=== PATIENT | female | born 1990 | race Caucasian/White ===

== ENCOUNTER 2019-05-25 13:12 | Emergency (ER) | payer OTHER ==
[2019-05-25 13:25] VITALS: BP 112/74
--- NOTE | 2019-05-25 13:48 | UC ---
Ear Complaint HPI - HPI Summary HPI Summary: 29 year old female with no PMH present with L ear pain x 4 days. Pain worsening , radiating into neck with fullness on left side. no drainage, no sinus pressure/ pain. h/o seasonal allergies. No fever, chills. NO medications , no recent abx. h/o mutliple ear infections, tubes as child, none recently. - History of Current Complaint Chief Complaint: UCEar Stated Complaint: EAR PAIN Time Seen by Provider: 05/25/19 13:27 Hx Obtained From: Patient Hx Last Menstrual Period: iud ?: No Onset/Duration: Sudden Onset, Lasting Days - 4 Severity Initially: Moderate Severity Currently: Moderate Pain Intensity: 5 Pain Scale Used: 0-10 Numeric Alleviating Factors: OTC Meds - motrin Associated Signs/Symptoms: Negative: Foreign Body Sensation, Trauma to Ear Related History: Seasonal Allergies - Allergies/Home Medications Allergies/Adverse Reactions: Allergies Allergy/AdvReac Type Severity Reaction Status Date / Time No Known Allergies Allergy Verified 05/25/19 13:25 PMH/Surg Hx/FS Hx/Imm Hx Previously Healthy: Yes - Surgical History Surgical History: Yes Surgery Procedure, Year, and Place: ear tubes; adenoids; patch on hole in ear drum bi lat - Family History Known Family History: Positive: Non-Contributory - Social History Alcohol Use: None Substance Use Type: None Smoking Status (MU): Never Smoked Tobacco Have You Smoked in the Last Year: No - Immunization History Most Recent Influenza Vaccination: 09/09/13 Most Recent Tetanus Shot: 09/09/13 Most Recent Pneumonia Vaccination: n/a Review of Systems All Other Systems Reviewed And Are Negative: Yes Constitutional: Negative: Fever, Chills, Fatigue ENT: Positive: Ear Ache. Negative: Sore Throat, Nasal Discharge, Sinus Congestion, Sinus Pain/Tenderness Is Patient Immunocompromised?: No Physical Exam Triage Information Reviewed: Yes Appearance: Well-Appearing, No Pain Distress, Well-Nourished Vital Signs: Initial Vital Signs Temp 97.8 F 05/25/19 13:21 Pulse 92 05/25/19 13:21 Resp 17 05/25/19 13:21 BP 112/74 05/25/19 13:21 Pulse Ox 100 05/25/19 13:21 Vital Signs Reviewed: Yes Eyes: Positive: Conjunctiva Clear ENT: Positive: Pharyngeal erythema, TMs normal, Tonsillar swelling, Tonsillar exudate, Uvula midline. Negative: Nasal congestion, TM bulging, TM dull, TM red , Muffled voice, Sinus tenderness Neck: Positive: Supple, Nontender, Enlarged Nodes @ - B/l LAD. Negative: Nuchal Rigidity Respiratory: Positive: Chest non-tender, Lungs clear, Normal breath sounds, No respiratory distress, No accessory muscle use. Negative: Crackles, Rhonchi, Stridor, Wheezing Psychological Exam: Normal Skin Exam: Normal Ear Complaint Course/Dx - Course Course Of Treatment: rapid strep: + Strep Throat: - Increase fluid intake - Antibiotics as directed - Motrin/ Tylenol as needed for pain - Go to ER or return with fever > 101, difficulty swallowing, neck pain - Differential Dx/Diagnosis Provider Diagnosis: Strep sore throat Discharge - Sign-Out/Discharge Documenting (check all that apply): Patient Departure All imaging exams completed and their final reports reviewed: No Studies - Discharge Plan Condition: Good Disposition: HOME Prescriptions: Amoxicillin PO (*) [Amoxicillin 500 MG CAP*] 500 mg PO Q12H #20 cap Patient Education Materials: Strep Throat (ED) Referrals: Jami Valladares [Primary Care Provider] - Additional Instructions: Strep Throat: - Increase fluid intake - Antibiotics as directed - Motrin/ Tylenol as needed for pain - Go to ER or return with fever > 101, difficulty swallowing, neck pain - Billing Disposition and Condition Condition: GOOD Disposition: Home - Attestation Statements Provider Attestation: Per institutional requirements, I have reviewed the chart, however, I was not consulted specifically or made aware of this patient by the midlevel provider. I did not personally evaluate, interact with , or disposition this patient.
== END 2019-05-25 14:02 | disposition home or self-care (01) ==
LOC: UCEAST 13:12
DX: J02.0 Streptococcal pharyngitis (principal)
CPT/HCPCS: 87651; 99212; G0463

== ENCOUNTER 2019-09-20 22:24 | Emergency (ER) | payer OTHER ==
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
[2019-09-20 23:25] VITALS: BP 0/0
== END 2019-09-20 23:25 | disposition home or self-care (01) ==
LOC: ED 22:24
DX: S19.9XXA Unspecified injury of neck, initial encounter (principal); Y04.8XXA Assault by other bodily force, initial encounter; Y92.230 Patient room in hospital as the place of occurrence of the external cause; Y99.0 Civilian activity done for income or pay; F32.9 Major depressive disorder, single episode, unspecified
CPT/HCPCS: 99281

== ENCOUNTER 2022-09-30 17:45 | Inpatient (IN) ==
[2022-09-30] MEDS ORDERED: Promethazine INJ(RESTRICTED) 25 MG/ML 1 ml VIAL IV PRN (19:15)
[2022-09-30] MEDS ORDERED: Oxytocin 10 UNITS/ML 1 ML VIAL IM ONE (19:42)
[2022-09-30] MEDS ORDERED: Dibucaine 1% OINT 28.35 GM TUBE PR PRN (19:42)
[2022-09-30] MEDS ORDERED: Witch Hazel PAD JAR TOPICAL PRN (19:42)
[2022-09-30 21:10] LABS: ABS Lymphocytes 0.7 10^3/ul (1.0-4.8); ABS Monocytes 0.6 10^3/ul (0-0.8); Eosinophil % 0.1 %; Hematocrit 33 % (35-47); Hemoglobin 10.4 g/dL (12.0-16.0); Lymphocyte % 6.4 %; Mean Corpuscular HGB Conc 32 g/dL (31-36); Mean Corpuscular Hemoglobin 24 pg (27-31); Mean Corpuscular Volume 73 fL (80-97); Mean Platelet Volume 9.1 fL (7.4-10.4); Nucleated Red Blood Cells % 0.1; Platelet Count 178 10^3/uL (150-450); Red Blood Count 4.44 10^6 /uL (3.70-4.87); Red Cell Distribution Width 14 % (10-15); White Blood Count 11.4 10^3/uL (3.5-10.8)
[2022-10-01 04:49] LABS: Urine Benzodiazepine Screen None Detected (None Detect); Urine Cannabinoids Screen None Detected (None Detect); Urine Opiates Screen None Detected (None Detect)
[2022-10-01 07:46] LABS: ABS Eosinophils 0.1 10^3/ul (0-0.6); ABS Lymphocytes 1.3 10^3/ul (1.0-4.8); ABS Neutrophils 5.5 10^3/ul (1.5-7.7); Eosinophil % 1.6 %; Hematocrit 29 % (35-47); Hemoglobin 9.7 g/dL (12.0-16.0); Lymphocyte % 16.7 %; Mean Corpuscular HGB Conc 33 g/dL (31-36); Mean Corpuscular Hemoglobin 24 pg (27-31); Mean Corpuscular Volume 73 fL (80-97); Nucleated Red Blood Cells % 0.1; Platelet Count 161 10^3/uL (150-450); Red Cell Distribution Width 14 % (10-15); White Blood Count 7.9 10^3/uL (3.5-10.8)
[2022-10-01] MEDS ORDERED: Varicella Virus Vaccine Live 0.5 ML VIAL SUBCUT ONE (11:09)
[2022-10-02 07:52] VITALS: BP 126/84
== END 2022-10-02 13:58 | disposition home or self-care (01) | DRG 776 ==
LOC: MCHOBOUT 17:45 → MCHOB 17:59
PROVIDERS: ADMIT Registered Nurse; ATTEND Registered Nurse